=== PATIENT | female | born 2000 | race Caucasian/White ===

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

== ENCOUNTER 2019-04-30 03:34 | Emergency (ER) | payer OTHER, SELFPAY ==
[2019-04-30] MEDS ORDERED: Acetaminophen 500 MG TAB ONE (04:25)
--- NOTE | 2019-04-30 07:51 | CT ---
PRELIMINARY REPORT/[facility]/EMERGENCY AFTER HOURS PROCEDURE: PROCEDURE INFORMATION: Exam: CT Head Without Contrast Exam date and time: 04/30/2019 4:24 AM Clinical history: 18 years old, female; Pain; Headache not specified TECHNIQUE: Imaging protocol: Computed tomography of the head without contrast. COMPARISON: No relevant prior studies available. FINDINGS: Brain: No acute intracranial hemorrhage or mass effect. No definite acute infarct by CT. Ventricles: Ventricle size is normal for age. Bones/joints: No definite acute skull fracture. Sinuses: Included paranasal sinuses are essentially clear. Mastoid air cells: No significant acute finding. IMPRESSION: 1. No acute intracranial hemorrhage or mass effect. 2. Other findings discussed above. Thank you for allowing us to participate in the care of your patient. Dictated and Authenticated by: Mike Melendez MD 04/30/2019 4:40 AM Central Time ([place] & [place]) FINAL REPORT: CT BRAIN: PROVIDED CLINICAL HISTORY: Headache. COMPARISON: None. FINDINGS/IMPRESSION: Agree with the preliminary interpretation given by MEL. Transcribed Date/Time: 04/30/2019 8:02 AM
== END 2019-04-30 04:45 | disposition home or self-care (01) ==
LOC: MADERS 03:34
DX: R51 Headache (principal)
CPT/HCPCS: 70450